=== PATIENT | male | born 1980 | race Caucasian/White ===

== ENCOUNTER 2021-10-05 15:38 | Emergency (ER) | payer SELFPAY ==
[2021-10-05] MEDS ORDERED: Acetaminophen 500 MG Tab PO ONE (15:52)
[2021-10-05] MEDS ORDERED: traMADol 50 MG Tab PO ONE (15:52)
== END 2021-10-05 16:54 | disposition home or self-care (01) ==
LOC: FB.ED 15:38
DX: K02.9 Dental caries, unspecified (principal); Z88.4 Allergy status to anesthetic agent; Z88.5 Allergy status to narcotic agent; Z88.8 Allergy status to other drugs, medicaments and biological substances; Z72.0 Tobacco use
CPT/HCPCS: 99282; A9270; 99281

== ENCOUNTER 2021-10-28 17:54 | Emergency (ER) | payer MEDICAID ==
[2021-10-28] MEDS ORDERED: Sodium Chloride 0.9% 1,000 ML IV ONE (18:19)
[2021-10-28] MEDS ORDERED: Ketorolac 30 MG/ML SDV IVPUSH ONE (18:20)
[2021-10-28] MEDS ORDERED: Ondansetron 4 MG/2 ML SDV IVPUSH ONE (18:22)
[2021-10-28] MEDS ORDERED: diphenhydrAMINE 50 MG Cap PO ONE (18:23)
[2021-10-28] MEDS ORDERED: SUMAtriptan 50 MG Tab PO ONE (18:23)
== END 2021-10-28 20:00 | disposition home or self-care (01) ==
LOC: FB.ED 17:54
DX: G43.519 Persistent migraine aura without cerebral infarction, intractable, without status migrainosus (principal); Z88.4 Allergy status to anesthetic agent; Z88.5 Allergy status to narcotic agent; Z88.8 Allergy status to other drugs, medicaments and biological substances
CPT/HCPCS: 96374; 96375; 99283-25; A9270-GY; J1885; J2405; J7030

== ENCOUNTER 2021-12-09 16:13 | Emergency (ER) | payer MEDICAID ==
[2021-12-09 16:54] LABS: ESTIMATED GFR 109 mL/min (>60)
== END 2021-12-09 17:32 | disposition home or self-care (01) ==
LOC: FB.ED 16:13
DX: R07.9 Chest pain, unspecified (principal); F17.210 Nicotine dependence, cigarettes, uncomplicated; Z88.4 Allergy status to anesthetic agent; Z88.5 Allergy status to narcotic agent; Z88.8 Allergy status to other drugs, medicaments and biological substances
CPT/HCPCS: 36415; 71045; 80053; 83880; 84484; 85025; 85379; 93005; 99285

== ENCOUNTER 2022-01-10 15:32 | Emergency (ER) | payer MEDICAID ==
[2022-01-10 16:12] LABS: ESTIMATED GFR 109 mL/min (>60)
== END 2022-01-10 17:10 | disposition home or self-care (01) ==
LOC: FB.ED 15:32
DX: J45.901 Unspecified asthma with (acute) exacerbation (principal); F17.210 Nicotine dependence, cigarettes, uncomplicated; E66.9 Obesity, unspecified; Z68.31 Body mass index [BMI] 31.0-31.9, adult; Z88.5 Allergy status to narcotic agent; Z88.4 Allergy status to anesthetic agent; Z88.8 Allergy status to other drugs, medicaments and biological substances; Z20.822 Contact with and (suspected) exposure to COVID-19
CPT/HCPCS: 36415; 80053; 85025; 86140; 99284; U0002

== ENCOUNTER 2023-09-27 18:27 | Emergency (ER) | payer OTHER ==
[2023-09-27] MEDS: traMADol 50 MG Tab PO ONE (21:14)
[2023-09-27 21:42] LABS: BASOPHILS ABSOLUTE AUTO 0.1 x10-3/uL (0.0-0.3); BASOPHILS PERCENT AUTO 0.9 % (0.3-3.8); EOSINOPHILS ABSOLUTE AUTO 0.4 x10-3/uL (0.0-0.6); HEMATOCRIT 45.7 % (38.3-50.1); HEMOGLOBIN 15.4 g/dL (12.9-17.7); LYMPHOCYTES ABSOLUTE AUTO 2.8 x10-3/uL (0.5-4.5); LYMPHOCYTES PERCENT AUTO 31.3 % (15.8-45.3); MEAN CORPUSCULAR HEMOGLOBIN 32.3 pg (27.0-33.3); MEAN CORPUSCULAR HGB CONC 33.7 g/dL (28.7-35.3); MEAN CORPUSCULAR VOLUME 95.8 fL (80.8-98.7); MEAN PLATELET VOLUME 8.5 fL (6.7-11.0); MONOCYTES ABSOLUTE AUTO 0.5 x10-3/uL (0.0-1.2); MONOCYTES PERCENT AUTO 5.6 % (5.5-15.2); NEUTROPHILS ABSOLUTE AUTO 5.3 x10-3/uL (1.7-6.9); NEUTROPHILS PERCENT AUTO 58.2 % (40.3-71.8); PLATELET COUNT,PLT 194 x10(3)uL (117-477); RED BLOOD CELL COUNT 4.77 x10(6)uL (3.90-5.90); RED CELL DISTRIBUTION WIDTH 13.5 % (12.4-15.0); WHITE BLOOD CELL COUNT,WBC 9.1 x10-3/uL (3.2-10.1)
[2023-09-27] MEDS: predniSONE 20 MG Tab PO ONE (23:11)
== END 2023-09-27 23:16 | disposition home or self-care (01) ==
LOC: FB.ED 18:27
DX: S76.912A Strain of unspecified muscles, fascia and tendons at thigh level, left thigh, initial encounter (principal); F11.21 Opioid dependence, in remission; F17.200 Nicotine dependence, unspecified, uncomplicated; Z79.51 Long term (current) use of inhaled steroids; Z79.899 Other long term (current) drug therapy; J45.909 Unspecified asthma, uncomplicated; X50.0XXA Overexertion from strenuous movement or load, initial encounter; Y99.0 Civilian activity done for income or pay
CPT/HCPCS: 36415; 85025; 85379; 86140; 99283; A9270; J7512

== ENCOUNTER 2023-10-03 18:20 | Emergency (ER) | payer OTHER ==
[2023-10-03] MEDS: Ketorolac 30 MG/ML SDV IM ONE (18:48)
== END 2023-10-03 18:54 | disposition home or self-care (01) ==
LOC: FB.ED 18:20
DX: S39.012A Strain of muscle, fascia and tendon of lower back, initial encounter (principal); J45.909 Unspecified asthma, uncomplicated; F17.210 Nicotine dependence, cigarettes, uncomplicated; X58.XXXA Exposure to other specified factors, initial encounter
CPT/HCPCS: 96372; 99283; J1885

== ENCOUNTER 2024-03-19 19:03 | Emergency (ER) | payer OTHER | END 2024-03-19 20:48 | disposition home or self-care (01) | LOC: FB.ED 19:03 | DX: R51.9 Headache, unspecified (principal); J45.909 Unspecified asthma, uncomplicated; E66.9 Obesity, unspecified; Z68.30 Body mass index [BMI] 30.0-30.9, adult; Z79.899 Other long term (current) drug therapy; W19.XXXA Unspecified fall, initial encounter | CPT/HCPCS: 70160; 99283 ==

== ENCOUNTER 2024-05-18 19:22 | Emergency (ER) | payer OTHER ==
[2024-05-18 20:14] LABS: BLOOD UREA NITROGEN,BUN 11 mg/dL (7-18); BUN/CREATININE RATIO 12.2 (9-20); CALCIUM 8.5 mg/dL (8.6-10.2); CARBON DIOXIDE,CO2 25 mmol/L (21-32); CHLORIDE,CL 107 mmol/L (100-110); CREATININE 0.9 mg/dL (0.70-1.30); EST CRCL DRUG DOSING (CG) 100.28 mL/min; ESTIMATED GFR 107 mL/min (>60); GLUCOSE RANDOM 145 mg/dL (80-116); POTASSIUM,K 3.9 mmol/L (3.5-5.3); SODIUM,NA 144 mmol/L (135-145)
[2024-05-18] MEDS: Ketorolac 30 MG/ML SDV IM ONE (21:16)
== END 2024-05-18 22:09 | disposition home or self-care (01) ==
LOC: FB.ED 19:22
DX: R07.89 Other chest pain (principal); R07.81 Pleurodynia; M70.88 Other soft tissue disorders related to use, overuse and pressure other site; J45.909 Unspecified asthma, uncomplicated; E66.9 Obesity, unspecified; Z72.0 Tobacco use; Z79.51 Long term (current) use of inhaled steroids; Z79.899 Other long term (current) drug therapy; Z68.34 Body mass index [BMI] 34.0-34.9, adult
CPT/HCPCS: 36415; 71101; 80048; 84484; 85379; 93005; 96372; 99284; J1885

== ENCOUNTER 2024-09-09 19:46 | Emergency (ER) | payer SELFPAY ==
[2024-09-09] MEDS: Sodium Chloride 0.9% 10 ML Syringe FLUSH PRN (20:22)
[2024-09-09] MEDS: Sodium Chloride 0.9% 1,000 ML IV SCH (20:23)
[2024-09-09] MEDS: Ondansetron 4 MG/2 ML SDV IVPUSH ONE (20:37)
[2024-09-09 20:47] LABS: BASOPHILS ABSOLUTE AUTO 0.1 x10-3/uL (0.0-0.3); BASOPHILS PERCENT AUTO 0.8 % (0.3-3.8); EOSINOPHILS PERCENT AUTO 0.6 % (0.1-6.8); HEMATOCRIT 45.4 % (38.3-50.1); HEMOGLOBIN 15.6 g/dL (12.9-17.7); LYMPHOCYTES ABSOLUTE AUTO 1.6 x10-3/uL (0.5-4.5); LYMPHOCYTES PERCENT AUTO 21.7 % (15.8-45.3); MEAN CORPUSCULAR HEMOGLOBIN 32.1 pg (27.0-33.3); MEAN CORPUSCULAR HGB CONC 34.3 g/dL (28.7-35.3); MEAN CORPUSCULAR VOLUME 93.6 fL (80.8-98.7); MEAN PLATELET VOLUME 8.7 fL (6.7-11.0); MONOCYTES ABSOLUTE AUTO 0.4 x10-3/uL (0.0-1.2); MONOCYTES PERCENT AUTO 5.8 % (5.5-15.2); NEUTROPHILS ABSOLUTE AUTO 5.2 x10-3/uL (1.7-6.9); NEUTROPHILS PERCENT AUTO 71.1 % (40.3-71.8); PLATELET COUNT,PLT 157 x10(3)uL (117-477); RED BLOOD CELL COUNT 4.85 x10(6)uL (3.90-5.90); RED CELL DISTRIBUTION WIDTH 13.6 % (12.4-15.0); WHITE BLOOD CELL COUNT,WBC 7.4 x10-3/uL (3.2-10.1)
[2024-09-09 20:49] LABS: BLOOD UREA NITROGEN,BUN 10 mg/dL (7-18); BUN/CREATININE RATIO 11.1 (9-20); CALCIUM 8.5 mg/dL (8.6-10.2); CARBON DIOXIDE,CO2 30 mmol/L (21-32); CHLORIDE,CL 105 mmol/L (100-110); CREATININE 0.9 mg/dL (0.70-1.30); EST CRCL DRUG DOSING (CG) 107.02 mL/min; ESTIMATED GFR 107 mL/min (>60); GLUCOSE RANDOM 95 mg/dL (80-116); POTASSIUM,K 3.8 mmol/L (3.5-5.3); SODIUM,NA 143 mmol/L (135-145)
== END 2024-09-09 21:45 | disposition home or self-care (01) ==
LOC: FB.ED 19:46
DX: R11.2 Nausea with vomiting, unspecified (principal); J45.909 Unspecified asthma, uncomplicated; Z79.51 Long term (current) use of inhaled steroids; Z79.899 Other long term (current) drug therapy
CPT/HCPCS: 36415; 80048; 85025; 96361; 96374; 99283; 99284-25; J2405; J7030

== ENCOUNTER 2025-03-27 18:19 | Emergency (ER) | payer OTHER | END 2025-03-27 19:19 | disposition home or self-care (01) | LOC: FB.ED 18:19 | DX: J02.9 Acute pharyngitis, unspecified (principal); J45.909 Unspecified asthma, uncomplicated; E66.9 Obesity, unspecified; Z79.899 Other long term (current) drug therapy; Z79.52 Long term (current) use of systemic steroids; Z68.29 Body mass index [BMI] 29.0-29.9, adult | CPT/HCPCS: 87651; 99283 ==